=== PATIENT | female | born 1990 | race Caucasian/White ===

== ENCOUNTER 2024-05-31 08:44 | Emergency (ER) | payer OTHER ==
[~2024-05-31] VITALS: Ht 167.6 cm; Wt 113.3 kg
[2024-05-31 09:02] VITALS: BP 153/95
[2024-05-31] MEDS ORDERED: TANLOR1000 MG PO (09:24)
[2024-05-31] MEDS ORDERED: VENTOLIN HFA108 MCG PO (09:47)
[2024-05-31 09:58] VITALS: BP 153/95
[2024-06-01] MEDS ORDERED: METHOCARBAMOL750 MG PO ×2 (13:36→13:38)
== END 2024-05-31 10:05 | disposition home or self-care (01) | DRG 552 ==
LOC: ED 08:44
DX: M54.6 Pain in thoracic spine (principal); E66.9 Obesity, unspecified